=== PATIENT | female | born 1970 | race Caucasian/White ===

== ENCOUNTER 2017-02-28 18:49 | Emergency (ER) | payer OTHER ==
[2017-02-28 19:07] VITALS: BP 127/87
[2017-02-28] MEDS ORDERED: BACITRACIN OINT TOP STA (20:04)
[2017-02-28] MEDS ORDERED: BACITRACIN OINT TOP ONE (20:06)
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
== END 2017-02-28 20:13 | disposition home or self-care (01) ==
LOC: ED 18:49
DX: T22.212A Burn of second degree of left forearm, initial encounter (principal); T31.0 Burns involving less than 10% of body surface; X19.XXXA Contact with other heat and hot substances, initial encounter; R03.0 Elevated blood-pressure reading, without diagnosis of hypertension; F17.200 Nicotine dependence, unspecified, uncomplicated
CPT/HCPCS: 99282; 99283; A9270

== ENCOUNTER 2017-09-25 16:24 | Outpatient (CLI) | payer OTHER ==
--- NOTE | 2017-09-25 21:49 | MRI Report ---
EXAM: LEFT SHOULDER MRI WITHOUT CONTRAST EXAM DATE: 09/25/2017 05:09 PM. CLINICAL HISTORY: Left shoulder pain. History of thyroid cancer. COMPARISON: None. TECHNIQUE: Multiplanar, multisequence T1-weighted and fluid-sensitive sequences of the shoulder witho ut contrast. Other: None. FINDINGS: Acromioclavicular Region: The acromion is type II. The acromioclavicular joint is unremarkable. The c oracoacromial and coracoclavicular ligaments are intact. A mild amount of fluid is in the subacromial /subdeltoid bursa. Glenohumeral Region: No subluxation. No effusion or loose bodies. The articular cartilage is unremark able. The glenohumeral ligaments and joint capsule are unremarkable. Bone Marrow: No fractures. Mild amount of reactive marrow edema is in the greater tuberosity. Labrum: The labrum is unremarkable on this nonarthrographic study. Musculature/Rotator Cuff: The subscapularis tendon is unremarkable. The supraspinatus tendon has prom inent edema throughout. There is bursal-sided fissuring and fraying. A 1 mm width oblique full-thickn ess tear may be present on series 701, image 6. The infraspinatus and teres minor tendons are intact. No edema or fatty atrophy. Biceps Tendon: The long head of the biceps tendon and biceps tia are intact. Other: The subcutaneous tissues are unremarkable. IMPRESSION: 1. Moderate to severe supraspinatus tendinosis with possible minimal width full-thickness tear compon ent. 2. Mild subacromial/subdeltoid bursitis. [facility] MUSCULOSKELETAL RADIOLOGY SECTION Referring Provider Line: [phone] SITE ID: [id number]
== END 2017-09-25 16:25 | disposition home or self-care (01) ==
LOC: DI 16:24
PROVIDERS: ATTEND Nutritionist
DX: M75.52 Bursitis of left shoulder (principal); Z85.850 Personal history of malignant neoplasm of thyroid

== ENCOUNTER 2020-08-02 18:15 | Emergency (ER) | payer BC, OTHER ==
[2020-08-02 18:21] VITALS: BP 131/91
[2020-08-02] MEDS ORDERED: IBUPROFEN 600 MG TABLET PO STA (18:32)
--- NOTE | 2020-08-02 18:33 | ED Physician Documentation ---
History of Present Illness - Stated complaint Stated Complaint: LT KNEE PX - Chief complaint Chief Complaint: Ext Problem - Additonal information Additional information: Presents w/ left lower leg pain. Started yesterday briefly but was ok this AM and then occurred again this afternoon. Pain is sharp and shooting, starts lateral left knee and radiates down leg. no trauma, no swelling. feels fine at rest, even if bending the knee, only painful w/ ambulation. hasn't taken any meds or attempted other treatment because she has been at the all day w/ her mom who is receiving cancer treatment. Review of Systems Constitutional: reports: Reviewed and negative Cardiac: reports: Reviewed and negative Respiratory: reports: Reviewed and negative GI: reports: Reviewed and negative : reports: Reviewed and negative Skin: reports: Reviewed and negative Musculoskeletal: reports: Extremity pain, Joint pain, Pain with weight bearing. denies: Neck pain, Back pain, Extremity swelling, Joint swelling Neurologic: reports: Reviewed and negative PD PAST MEDICAL HISTORY - Past Medical History Endocrine/Autoimmune: HyPOthyroidism Musculoskeletal: Chronic back pain - Past Surgical History Past Surgical History: Yes General: Gastric surgery - Present Medications Home Medications: Ambulatory Orders Medication Instructions Recorded Confirmed Amoxicillin 250 mg PO TID 02/28/17 02/28/17 Bacitracin Zinc Oint 1 gm TOP BID #1 tube 02/28/17 Levothyroxine Sodium [Synthroid] 50 mg PO DAILY 02/28/17 02/28/17 Levothyroxine Sodium [Synthroid] 137 mcg PO DAILY 02/28/17 02/28/17 Meloxicam [Mobic] 7.5 mg PO DAILY #30 tablet 08/02/20 - Allergies Allergies/Adverse Reactions: Allergies Allergy/AdvReac Type Severity Reaction Status Date / Time No Known Drug Allergies Allergy Verified 08/02/20 18:17 - Social History Does the pt smoke?: Yes Smoking Status: Current every day smoker Does the pt drink ETOH?: No Does the pt have substance abuse?: No - Immunizations Immunizations are current?: Yes - POLST Patient has POLST: No PD ED PE NORMAL - Vitals Vital signs reviewed: Yes - General General: Alert and oriented X 3, No acute distress, Well developed/nourished - HEENT HEENT: Atraumatic, Moist mucous membranes - Cardiac Cardiac: RRR, No murmur - Respiratory Respiratory: No respiratory distress, Clear bilaterally - Derm Derm: Normal color, Warm and dry, No rash - Extremities Extremities: No deformity, Normal ROM s pain, No edema, No calf tenderness / cord, Other (full rom of the knee w/o popping, clicking, or crepitus. no knee or leg swelling or erythema. negative lachmans and rock's, negative ant/post drawer testing. normal knee exam aside from tenderness left lateral joint line. ) - Neuro Neuro: Alert and oriented X 3 Eye Opening: Spontaneous Motor: Obeys Commands Verbal: Oriented GCS Score: 15 - Psych Psych: Normal mood, Normal affect Results - Vitals Vitals: Vital Signs - 24 hr 08/02/20 18:17 Temperature 36.6 C Heart Rate 82 Respiratory 18 Rate Blood Pressure 131/91 H O2 Saturation 100 Oxygen O2 Source Room air PD MEDICAL DECISION MAKING - ED course Complexity details: reviewed results, re-evaluated patient, d/w patient ED course: Pt presents with left lateral knee and lower leg pain. No trauma to the area. She has a normal knee exam aside from some lateral left knee ttp. Xray is normal as expected. advised supportive measures (RICE, prescribed meloxicam) and fup w/ pcp if no improvement in 2-3 weeks. return precautions reviewed in detail w/ pt. Departure - Departure Disposition: 01 Home, Self Care Clinical Impression: Pain in extremity Qualifiers: Extremity pain location: lower extremity Laterality: left Qualified Code(s): M79.605 - Pain in left leg Condition: Good Prescriptions: Meloxicam [Mobic] 7.5 mg PO DAILY #30 tablet Comments: You presented with left knee pain. Your knee xray was negative for acute findings and your physical exam was reassuring. I do not suspect a ligamentous or meniscal injury but if you continue to have pain in 1-2 weeks, follow up with your primary doctor. You may take tylenol as needed and I have prescribed meloxicam as an anti inflammatory. You can use an elena wrap and cool compress for support. Discharge Date/Time: 08/02/20 19:02
--- NOTE | 2020-08-02 19:12 | XRAY Report ---
PROCEDURE: Knee 3 View LT INDICATIONS: Knee pain TECHNIQUE: 2 views of the left knee(s) were acquired. COMPARISON: None. FINDINGS: Bones: No fractures or dislocations. No suspicious bony lesions. Moderate joint space narrowing an d osteoarthritic change. Soft tissues: No joint effusion. No suspicious soft tissue calcifications. IMPRESSION: No acute finding. Moderate degenerative changes. Reviewed by: Js De MD on 08/02/2020 7:10 PM PST Approved by: Js De MD on 08/02/2020 7:10 PM PST Station ID: [id number]
== END 2020-08-02 19:02 | disposition home or self-care (01) ==
LOC: ED 18:15
DX: M79.605 Pain in left leg (principal); F17.200 Nicotine dependence, unspecified, uncomplicated
CPT/HCPCS: 73562; 99283; 99284; A9270

== ENCOUNTER 2022-10-07 10:16 | Outpatient (CLI) | payer OTHER ==
--- NOTE | 2022-10-07 15:38 | Mammography Report ---
BILATERAL DIGITAL SCREENING MAMMOGRAM 3D/2D WITH AUGMENTATION: 10/07/2022 CLINICAL: Baseline exam. Routine screening. No prior exams were available for comparison. Both breasts are heterogeneously dense, which may obscure small masses (category c / 51-75% glandular tissue). There is a 0.6 cm oval mass with a circumscribed margin in the right breast at 12 o'clock middle dept h 5 cm from the nipple. No other significant masses, calcifications, or other findings are seen in either breast. IMPRESSION: INCOMPLETE: NEEDS ADDITIONAL IMAGING EVALUATION The 0.6 cm oval mass in the right breast is indeterminate. Additional views with possible ultrasound are recommended. Based on the Tyrer Cuzick model (a risk assessment model) the patients lifetime risk is 8.2% and her 10 year risk is 1.8%. According to the ACR, ACS, and NCCN guidelines, an annual breast MRI exam prince g with mammogram is recommended if the patients lifetime risk is 20% or greater. This exam was interpreted at Station ID: [id number]. NOTE: For mammograms, a report in lay terms will be sent to the patient. Approximately 15% of breast malignancies will not be visualized mammographically. In the management of a palpable breast mass, a negative mammogram must not discourage biopsy of a clinically suspicious lesion. Electronically Signed By: Kirill Boone M.D. acr/:10/07/2022 11:32:21 ACR BI-RADS Category 0: Incomplete 3340F PARENCHYMAL PATTERN: (D) - The breast(s) demonstrate(s) heterogeneously dense fibroglandular parenchy ma. BI-RADS CATEGORY: (0) - 0 Mammo and [place] [id number] Immediate follow-up LATERALITY: (R)
== END 2022-10-07 10:17 | disposition home or self-care (01) ==
LOC: DI.N 10:16
PROVIDERS: ATTEND Nurse Practitioner Primary Care
DX: Z12.31 Encounter for screening mammogram for malignant neoplasm of breast (principal); N63.15 Unspecified lump in the right breast, overlapping quadrants; Z98.82 Breast implant status

== ENCOUNTER 2022-10-30 10:35 | Outpatient (CLI) | payer OTHER ==
--- NOTE | 2022-10-31 15:29 | Mammography Report ---
UNILATERAL RIGHT DIGITAL DIAGNOSTIC MAMMOGRAM 3D/2D WITH SPOT COMPRESSION WITH AUGMENTATION: 3 CLINICAL: Patient returns today to evaluate a focal asymmetry in the right breast. Comparison is made to exam dated: 10/07/2022 mammogram - [facility]. The right breast is heterogeneously dense, which may obscure small masses (category c / 51-75% glandu lar tissue). Right saline implant is intact. There is a 0.6 cm oval mass with a circumscribed margin in the right breast at 11 o'clock middle dept h 5 cm from the nipple. This is seen in additional views. No other significant masses or calcifications are seen in the breast. IMPRESSION: INCOMPLETE: NEEDS ADDITIONAL IMAGING EVALUATION The 0.6 cm oval mass in the right breast is indeterminate. An ultrasound is recommended. Based on the Tyrer Cuzick model (a risk assessment model) the patients lifetime risk is 7.8% and her 10 year risk is 1.7%. According to the ACR, ACS, and NCCN guidelines, an annual breast MRI exam prince g with mammogram is recommended if the patients lifetime risk is 20% or greater. This exam was interpreted at Station ID: [id number]. NOTE: For mammograms, a report in lay terms will be sent to the patient. Approximately 15% of breast malignancies will not be visualized mammographically. In the management of a palpable breast mass, a negative mammogram must not discourage biopsy of a clinically suspicious lesion. Electronically Signed By: Henry olea/tee:10/30/2022 12:46:00 ACR BI-RADS Category 0: Incomplete 3340F PARENCHYMAL PATTERN: (D) - The breast(s) demonstrate(s) heterogeneously dense fibroglandular dick keating. BI-RADS CATEGORY: (0) - 0 Ultrasound [id number] Immediate follow-up LATERALITY: (R)
--- NOTE | 2022-10-31 15:29 | Ultrasound Report ---
LIMITED ULTRASOUND OF RIGHT BREAST: 10/30/2022 CLINICAL: Patient returns today to evaluate a focal asymmetry in the right breast. Comparison is made to exams dated: 10/30/2022 mammogram and 10/07/2022 mammogram - [facility]. Color flow ultrasound of the right breast 11 o'clock region was performed. Lambert scale images of the real-time examination were reviewed. There is a benign 0.4 cm x 0.6 cm x 0.4 cm oval cyst with a smooth internal wall in the right breast at 11 o'clock anterior depth 4 cm from the nipple. This oval cyst is anechoic with posterior acousti c enhancement. This correlates with mammography findings. IMPRESSION: BENIGN There is no sonographic evidence of malignancy. The 0.4 cm x 0.6 cm x 0.4 cm oval cyst in the right breast is consistent with a simple cyst and is be nign. Return to annual mammogram screening schedule is recommended. This exam was interpreted at Station ID: [id number]. Electronically Signed By: Henry olea/tee:10/30/2022 12:46:59 Ultrasound BI-RADS: 2 Benign BI-RADS CATEGORY: (2) - 2 Mammogram [id number] return to screening LATERALITY: (B)
== END 2022-10-30 10:36 | disposition home or self-care (01) ==
LOC: DI 10:35
PROVIDERS: ATTEND Nurse Practitioner Primary Care
DX: R92.8 Other abnormal and inconclusive findings on diagnostic imaging of breast (principal); Z98.82 Breast implant status

== ENCOUNTER 2023-03-22 17:50 | Emergency (ER) | payer OTHER ==
[2023-03-22 18:00] VITALS: BP 133/95
[2023-03-22] MEDS ORDERED: ALBUTEROL 1 PUFF INH STA (18:23)
--- NOTE | 2023-03-22 18:26 | ED Physician Documentation ---
History of Present Illness - Stated complaint Stated Complaint: COUGH/RIB PX - Chief complaint Chief Complaint: Resp - Additonal information Additional information: 52-year-old female presents emergency department for evaluation of a cough that began now over 2 weeks ago. Her son came home sick from school and she thought she had caught what ever virus he had but she has not Improved as anticipated. She reports a persistent productive cough. She is having coughing paroxysms and now having right-sided rib pain. Denies fevers, nausea or vomiting. No hemoptysis. She is a tobacco user. No history of asthma or COPD. Review of Systems Constitutional: denies: Fever, Chills Nose: reports: Reviewed and negative Throat: reports: Reviewed and negative Cardiac: reports: Reviewed and negative Respiratory: reports: Cough, Wheezing. denies: Hemoptysis GI: reports: Reviewed and negative : reports: Reviewed and negative PD PAST MEDICAL HISTORY - Past Medical History Endocrine/Autoimmune: HyPOthyroidism Musculoskeletal: Chronic back pain - Past Surgical History Past Surgical History: Yes General: Gastric surgery - Present Medications Home Medications: Ambulatory Orders Medication Instructions Recorded Confirmed Levothyroxine Sodium [Synthroid] 137 mcg PO DAILY 02/28/17 03/22/23 Albuterol Sulfate [Proair 90 mcg IH TID PRN #1 each 03/22/23 Respiclick] Azithromycin [Zithromax] 0 mg PO DAILY #6 tablet 03/22/23 Benzonatate [Tessalon] 200 mg PO TID PRN #20 cap 03/22/23 - Allergies Allergies/Adverse Reactions: Allergies Allergy/AdvReac Type Severity Reaction Status Date / Time No Known Drug Allergies Allergy Verified 02/16/22 19:19 - Social History Does the pt smoke?: Yes Smoking Status: Current every day smoker Does the pt drink ETOH?: No Does the pt have substance abuse?: No - Immunizations Immunizations are current?: Yes - POLST Patient has POLST: No PD ED PE NORMAL - General General: Alert and oriented X 3, No acute distress, Well developed/nourished - HEENT HEENT: Atraumatic, Moist mucous membranes - Neck Neck: Supple, no meningeal sign - Cardiac Cardiac: RRR, No murmur - Respiratory Respiratory: No respiratory distress. No: Clear bilaterally (Faint scattered expiratory wheeze most dominant on the right posterior lung ahn) - Abdomen Abdomen: Normal bowel sounds, Soft, Non tender - Derm Derm: Warm and dry - Extremities Extremities: No deformity - Neuro Neuro: Alert and oriented X 3 Eye Opening: Spontaneous Motor: Obeys Commands Verbal: Oriented GCS Score: 15 Results - Vitals Vitals: Vital Signs - 24 hr 03/22/23 17:55 Temperature 36.6 C Heart Rate 87 Respiratory 20 Rate Blood Pressure 133/95 H O2 Saturation 99 Oxygen O2 Source Room air - Rads (name of study) cxr 2v Relevant Findings:: Final report received (No acute cardiopulmonary process) PD Medical Decision Making - ED course Complexity details: reviewed results, re-evaluated patient, d/w patient ED course: 52-year-old female presents emergency department for evaluation of cough that began now over 3 weeks ago. No fevers or hemoptysis but she is wheezy. She is a daily tobacco user. She has had coughing proximal isms that now have resulted in right-sided chest wall and rib wall pain. Here in the emergency department cardiopulmonary auscultation was unremarkable. Room air saturations 99%. She did have some tenderness with palpation of the rib wall. A 2 view chest x-ray is interpreted by the radiologist showed no findings suggest rib fracture, pneumonia or pleural effusion. She was initially wheezy especially in the right posterior lung ahn. I asked RT to give her albuterol via spacer which markedly improved the wheeze. Here in the emergency department we did give her 10 mg of Decadron orally. As such I feel is appropriate to consider short course of antibiotics for a bronchitis that is failed to resolve over the course of 2 weeks. Azithromycin has been sent to the [facility] in [place]. Ash Fajardo in addition to albuterol. Advised to fo llow close with PCP. Usual emergent return precautions for worsening symptoms were discussed Departure - Departure Disposition: Home, Self Care Clinical Impression: Bronchitis Condition: Stable Record reviewed to determine appropriate education?: Yes Instructions: ED Upper Resp Infec Abx Tx Prescriptions: Albuterol Sulfate [Proair Respiclick] 90 mcg IH TID PRN #1 each PRN Reason: Wheezing Benzonatate [Tessalon] 200 mg PO TID PRN #20 cap PRN Reason: Cough Azithromycin [Zithromax] 0 mg PO DAILY #6 tablet Comments: As discussed at the bedside your chest x-ray is normal. There were no findings to suggest broken ribs or pneumonia. However given that your cough has been ongoing for over 2 weeks without improvement appropriate to consider treatment for bronchitis with a short course of antibiotics. I have also sent a prescription for Tessalon Perles a cough suppressant to the [facility] in [place]. I am also writing a prescription for albuterol. This can help reduce bronchospasm causing wheeze which can cause recurrent cough. You are given a single dose of Decadron today in the emergency department which should help with cough markedly over the next several days. Drink plenty water and get lots of rest. I encourage you to stop smoking if you are able. Discussed this ED visit with your primary care doctor. Return to the ER with any new or worsening symptoms.
--- NOTE | 2023-03-22 18:51 | XRAY Report ---
PROCEDURE: Chest 2 View X-Ray INDICATIONS: cough X 3 weeks TECHNIQUE: 2 views of the chest were acquired. COMPARISON: None. FINDINGS: Surgical changes and devices: None. Lungs and pleura: No pleural effusions or pneumothorax. Lungs are clear. Mediastinum: Mediastinal contours appear normal. Heart size is normal. Bones and chest wall: No suspicious bony lesions. Overlying soft tissues appear unremarkable. IMPRESSION: No acute cardiopulmonary process. Reviewed by: Kirill Boone on 03/22/2023 5:50 PM ANAHI Approved by: Kirill Boone on 03/22/2023 5:50 PM ANAHI Station ID: [id number]
[2023-03-22] MEDS ORDERED: DEXAMETHASONE 10 MG/ML VIAL PO STA (19:00)
[2023-03-22] MEDS ORDERED: CHERRY SYRUP 10 ML UDC PO ONE (19:00)
== END 2023-03-22 19:19 | disposition home or self-care (01) ==
LOC: ED 17:50
DX: J40 Bronchitis, not specified as acute or chronic (principal); F17.200 Nicotine dependence, unspecified, uncomplicated
CPT/HCPCS: 71046; 94640; 99283; A9270

== ENCOUNTER 2023-11-11 16:30 | Outpatient (CLI) | payer OTHER | END 2023-11-11 16:45 | disposition home or self-care (01) | LOC: LAB.N 16:30 | PROVIDERS: ATTEND Nurse Practitioner | DX: N39.0 Urinary tract infection, site not specified (principal) | CPT/HCPCS: 87086; 87181 ==